=== PATIENT | female | born 1960 | race Caucasian/White ===

== ENCOUNTER 2016-09-29 12:23 | Emergency (ER) | payer OTHER ==
[~2016-09-29] VITALS: Ht 162.6 cm; Wt 58.0 kg
[2016-09-29 12:33] VITALS: BP 113/79; PULSE 67; RESP 16; TEMP 98.4; O2SAT 99
--- NOTE | 2016-09-29 13:10 | PD ---
HPI . Nosebleed Chief Complaint: Nosebleed Time Seen by Provider: 12:59 Travel History International Travel<30 days: No Contact w/Intl Traveler<30days: No Traveled to known affect area: No History of Present Illness HPI Patient presents with the chief complaint of epistaxis which started yesterday. It was actually worse yesterday than it is today. She states that she coughed up 2 clots yesterday. Bleeding has been very mild today. Patient does not know I herprimary bleeding. She denies any local trauma. She denies any cold symptoms. She does not take any anticoagulants or antiplatelets. PFSH Past Medical History Hx Anticoagulant Therapy: No Cancer: Yes (SKIN CA REMOVED) Cardiovascular Problems: Yes (CHOL) High Cholesterol: Yes Chest Pain: Yes Cerebrovascular Accident: No Diabetes: No Diminished Hearing: No Endocrine: No Genitourinary: No Immune Disorder: No Musculoskeletal: No Neurologic: Yes Psychiatric: No Reproductive: No Respiratory: No Immunizations Current: Yes Migraines: Yes (OCCULAR OCC) Radiation Therapy: No Influenza Vaccination: No ?: Not Menopausal: Yes : 2 Para: 2 Past Surgical History Abdominal Surgery: No Body Medical Devices: BREAST IMPKLANTS Oral Surgery: Yes (WISDOM TEETH OUT) Thoracic Surgery: Yes (BREAST IMPLANTS X 2 ) Other Surgery: Yes (breast augmentation) Social History Alcohol Use: Yes (SOCIAL) Tobacco Use: No Substance Use: No Allergies-Medications (Allergen,Severity, Reaction): Coded Allergies: No Known Allergies (Verified , 09/29/16) Reported Meds & Prescriptions Reported Meds & Active Scripts Active No Active Prescriptions or Reported Medications Review of Systems Except as stated in HPI: all other systems reviewed are Neg HENT: Positive: Nosebleed Physical Exam Narrative GENERAL: Awake and alert and in no acute distress. SKIN: Warm and dry. HEAD: Atraumatic. Normocephalic. EYES: Pupils equal and round. ENT: Her left Kiesselbach's plexus is hyperemic. There is no active bleeding. NECK: Trachea midline. CARDIOVASCULAR: Regular rate and rhythm. RESPIRATORY: No accessory muscle use. MUSCULOSKELETAL: No obvious deformities. No edema. NEUROLOGICAL: Awake and alert. No obvious cranial nerve deficits. Motor grossly within normal limits. Normal speech. PSYCHIATRIC: Appropriate mood and affect; insight and judgment normal. Data Data Last Documented VS Vital Signs Date Time Temp Pulse Resp B/P Pulse Ox O2 Delivery O2 Flow Rate FiO2 09/29/16 12:41 16 09/29/16 12:33 98.4 67 113/79 99 MDM Medical Decision Making Medical Screen Exam Complete: Yes Emergency Medical Condition: Yes Differential Diagnosis Differential diagnosis includes but is not limited to epistaxis due to an upper respiratory infection, coagulopathy, local trauma, nasal fracture Narrative Course Patient presents with epistaxis which started yesterday which has now resolved. The bleeding was from Kiesselbach's plexus. The patient has been instructed to pinch her nose close for 10 minutes by the clock if her nose rebleeds. She has also been instructed to use Afrin. I have further instructed her to use Vaseline on her nasal mucosa. Diagnosis Primary Impression: Epistaxis Patient Instructions: Epistaxis (DC), General Instructions Additional Instructions: If your nose rebleeds, pinch it closed for 10 minutes. You can also try some Afrin nose spray. Follow-up for bleeding that does not resolve within 10 minutes. You may also prevent nosebleeds by cutting the nasal mucosa with Vaseline daily. Scripts No Active Prescriptions or Reported Meds Disposition: 01 DISCHARGE HOME Condition: Stable Suzanne Lee MD September 29, 2016 13:10
== END 2016-09-29 13:30 | disposition home or self-care (01) ==
LOC: PHED 12:23
DX: R04.0 Epistaxis (principal); E78.00 Pure hypercholesterolemia, unspecified; Z85.828 Personal history of other malignant neoplasm of skin; Z86.79 Personal history of other diseases of the circulatory system; Z86.69 Personal history of other diseases of the nervous system and sense organs
CPT/HCPCS: 99283